=== PATIENT | male | born 1965 | race Caucasian/White ===

== ENCOUNTER 2016-07-31 09:55 | Outpatient (CLI) | payer OTHER ==
[2012-11-16 15:18] VITALS: BP 130/68
[2016-07-31 10:32] LABS: eGFR (African) > 60; eGFR (Non-African) > 60
--- NOTE | 2016-07-31 14:28 | Diagnostic Imaging Report ---
OLEGARIO BEAUCHAMP [facility] [address] [facility] [address] [id number] Report Submission Date: Jul 31, 2016 12:04:04 PM CDT Patient Study Name: INEZ ANDERSON Date: Jul 31, 2016 10:11:36 AM CDT Modality Type: CR Gender: M Description: LOWER EXTREMITY : 65 Institution: [facility] Physician: OLEGARIO BEAUCHAMP Right knee - three views Clinical history: Lateral pain. Findings: Examination right knee in AP, lateral and sunrise views fails to demonstrate evidence of fracture or dislocation. There is a small patellar spur at the site of insertion of the quadriceps tendon. There is no evident joint effusion or fracture. Impression: 1. No fracture. Electronically signed on Jul 31, 2016 12:04:04 PM CDT by: Alber KAMARA
== END 2016-07-31 09:56 ==
LOC: RAD 09:55
PROVIDERS: ATTEND Family Medicine
DX: E78.2 Mixed hyperlipidemia (principal); M25.561 Pain in right knee
CPT/HCPCS: 36415; 73562; 80053; 80061

== ENCOUNTER 2018-06-05 10:18 | Outpatient (CLI) | payer OTHER ==
[2012-11-16 15:18] VITALS: BP 130/68
[2018-06-05 11:04] LABS: eGFR (Non-African) > 60
== END 2018-06-05 10:20 ==
LOC: RT 10:18
PROVIDERS: ATTEND Family Medicine
DX: I49.9 Cardiac arrhythmia, unspecified (principal); E78.2 Mixed hyperlipidemia
CPT/HCPCS: 36415; 80053; 80061